=== PATIENT | male | born 1960 | race Caucasian/White ===

== ENCOUNTER → 2016-05-21 | Outpatient (REF) | payer BC ==
[2016-05-21 14:42] LABS: BILIRUBIN,DIRECT 0.2 MG/DL (0.0-0.2)
== END | disposition home or self-care (01) ==
LOC: M LAB REF 13:36
PROVIDERS: ATTEND Internal Medicine Medical Oncology
DX: E83.119 Hemochromatosis, unspecified (principal)

== ENCOUNTER → 2016-06-04 | Outpatient (CLI) | payer OTHER ==
[2016-06-04 11:41] LABS: INR 1.05
[2016-06-04 12:24] LABS: ALBUMIN 4.3 GM/DL (3.2-5.2); ALBUMIN/GLOBULIN RATIO 1.43 (1.00-1.93); ALKALINE PHOSPHATASE 95 U/L (45-117); ALT/SGPT 80 U/L (12-78); AST/SGOT 52 U/L (15-37); BILIRUBIN,DIRECT 0.3 MG/DL (0.0-0.2); PERCENT SATURATION 45.9 % (19.7-37.4); TOTAL IRON BINDING CAPACITY 307 UG/DL (250-450); TOTAL PROTEIN 7.3 GM/DL (6.4-8.2)
== END ==
LOC: M LAB 10:44
PROVIDERS: ATTEND Internal Medicine Gastroenterology
DX: R74.8 Abnormal levels of other serum enzymes (principal)

== ENCOUNTER → 2018-05-27 | Outpatient (REF) | payer OTHER, SELFPAY ==
[2018-05-27 13:47] LABS: INFLUENZA A AMPLIFICATION POSITIVE (NEGATIVE); INFLUENZA B AMPLIFICATION NEGATIVE (NEGATIVE)
== END ==
LOC: M LAB REF 13:03
PROVIDERS: ATTEND Physician Assistant
DX: J11.1 Influenza due to unidentified influenza virus with other respiratory manifestations (principal)

== ENCOUNTER → 2019-05-18 | Outpatient (CLI) | payer BC ==
[~2019-05-18] MED LIST: METHACHOLINE KIT (J7674) INH ONE
--- NOTE | 2019-05-18 08:50 | PFTRPT ---
Site: [facility], [address] [place], [address] ID: [id number] Name: KOJO PLATT Visit Date: 05/18/2019 Second ID: [id number] Referring Doctor: Erna Love Reviewing Doctor: Pipe Gould MD Seamstress Fitter: Keo GARCIA RRT Age: 58 : 1960 Sex: Male Race: Height: 67.00 Inches Weight: 191.00 Lbs BSA: 1.98 Order IDs: [id number] Requested Test(s): <RESP-PFT.METH CHAL> Diagnosis: R05 puffs of albuterol for postbronchodilator. Review Status: Not Reviewed Pre-Bronch Post-Bronch Pred Actual %Pred Actual %Chng SPIROMETRY FVC (L) 4.32 4.27 98 4.16 -2 FEV1 (L) 3.28 3.25 98 3.21 -1 FEV1/FVC (%) 76 76 100 77 1 FEF 25% (L/sec) 7.26 6.02 82 5.55 -7 FEF 50% (L/sec) 4.70 3.64 77 3.58 -1 FEF 75% (L/sec) 1.42 1.03 72 1.01 -2 FEF 25-75% (L/sec) 2.77 2.71 97 2.59 -4 FEF Max (L/sec) 8.66 6.09 70 6.91 13 FIVC (L) 4.19 3.62 -13 FIF 50% (L/sec) 4.75 6.10 128 4.42 -27 FIF Max (L/sec) 6.33 5.44 -14 Expiratory Time (sec) 7.14 6.21 -13 Back Extrap Vol (L) 0.13 0.10 -26 Time To FEFmax (sec) 0.125 0.076 -38
== END ==
LOC: M CARPUL 05-11 08:38
PROVIDERS: ATTEND Nurse Practitioner Adult Health
DX: R05 Cough (principal)
CPT/HCPCS: 94070; 95070; J7674

== ENCOUNTER → 2022-05-14 | Outpatient (CLI) | payer BC ==
[~2022-05-14] MED LIST changes: -METHACHOLINE KIT (J7674) INH ONE; +METHACHOLINE KIT INH ONE
== END ==
LOC: M CARPUL 10:25
PROVIDERS: ATTEND Internal Medicine Pulmonary Disease
DX: R06.02 Shortness of breath (principal)
CPT/HCPCS: 94070; 95070; J7674

== ENCOUNTER → 2022-09-23 | Outpatient (REF) | LOC: M PLAIMG 09:46 | PROVIDERS: ATTEND Internal Medicine | DX: R52 Pain, unspecified (principal) ==